=== PATIENT | male | born 1990 | race Caucasian/White ===

== ENCOUNTER 2021-02-16 12:01 | Emergency (ER) | payer OTHER ==
[~2021-02-16] VITALS: Ht 180.3 cm; Wt 86.2 kg
[2021-02-16] MEDS ORDERED: CEPHALEXIN500 MG PO (14:00)
[2021-02-16 15:00] VITALS: BP 146/82
== END 2021-02-16 15:36 | disposition home or self-care (01) ==
LOC: M.ERS 12:01
DX: S01.81XA Laceration without foreign body of other part of head, initial encounter (principal); F17.210 Nicotine dependence, cigarettes, uncomplicated; W22.8XXA Striking against or struck by other objects, initial encounter; Y93.89 Activity, other specified; Y92.89 Other specified places as the place of occurrence of the external cause; Y99.8 Other external cause status